=== PATIENT | female | born 1955 | race Caucasian/White ===

== ENCOUNTER → 2023-12-06 11:30 | Outpatient (REF) | payer MEDICARE, OTHER, SELFPAY ==
[2023-12-06 12:55] LABS: Free T4 1.43 ng/dl (0.78-2.19)
[2023-12-06 13:09] LABS: TSH 1.06 uIU/ml (0.47-4.68)
== END ==
LOC: REG 11:30
PROVIDERS: ATTENDING PHYSICIAN Internal Medicine Endocrinology, Diabetes & Metabolism; FAMILY PHYSICIAN Nurse Practitioner Adult Health
DX: E05.90 Thyrotoxicosis, unspecified without thyrotoxic crisis or storm (principal)
CPT/HCPCS: 36415; 84439; 84443

== ENCOUNTER → 2024-02-12 07:14 | Outpatient (REF) | payer MEDICARE, OTHER, SELFPAY ==
[2024-02-12 10:31] LABS: ALT (SGPT) 14 U/L (0-35); AST (SGOT) 23 U/L (14-36); Albumin 4.2 g/dl (3.5-5.0); Alkaline Phosphatase 66 U/L (38-126); Blood Urea Nitrogen 22 mg/dl (7-17); Calcium 9.2 mg/dl (8.4-10.2); Carbon Dioxide 28 mmol/L (22-30); Chloride 105 mmol/L (98-107); Glucose 86 mg/dl (70-99); Potassium 4.6 mmol/L (3.5-5.1); Sodium 138 mmol/L (135-145); Total Bilirubin 0.9 mg/dl (0.2-1.3); Total Protein 6.9 g/dl (6.3-8.2); eGFR 40.73
[2024-02-12 10:43] LABS: Free T4 1.56 ng/dl (0.78-2.19)
[2024-02-12 10:57] LABS: TSH 0.64 uIU/ml (0.47-4.68)
== END ==
LOC: REG 07:14
PROVIDERS: ATTENDING PHYSICIAN Internal Medicine Endocrinology, Diabetes & Metabolism; FAMILY PHYSICIAN Nurse Practitioner Adult Health
DX: E05.90 Thyrotoxicosis, unspecified without thyrotoxic crisis or storm (principal)
CPT/HCPCS: 36415; 80053; 84100; 84439; 84443

== ENCOUNTER → 2024-03-10 15:09 | Outpatient (REF) | payer MEDICARE, OTHER, SELFPAY ==
[2024-03-10 17:02] LABS: Vitamin D, 25-OH*** 45.7 ng/mL (30-80)
== END ==
LOC: REG 15:09
PROVIDERS: ATTENDING PHYSICIAN Surgery; FAMILY PHYSICIAN Nurse Practitioner Adult Health
DX: E55.9 Vitamin D deficiency, unspecified (principal)
CPT/HCPCS: 36415; 82306

== ENCOUNTER → 2024-05-02 06:57 | Outpatient (REF) | payer MEDICARE, OTHER, SELFPAY ==
[2024-05-02 10:17] LABS: ALT (SGPT) 15 U/L (0-35); AST (SGOT) 23 U/L (14-36); Albumin 4.1 g/dl (3.5-5.0); Alkaline Phosphatase 65 U/L (38-126); Blood Urea Nitrogen 32 mg/dl (7-17); Calcium 9.2 mg/dl (8.4-10.2); Carbon Dioxide 27 mmol/L (22-30); Chloride 106 mmol/L (98-107); Glucose 87 mg/dl (70-99); Potassium 4.4 mmol/L (3.5-5.1); Sodium 141 mmol/L (135-145); Total Protein 6.5 g/dl (6.3-8.2); eGFR 44.24
[2024-05-02 10:45] LABS: TSH Reflex To Free T4 < 0.02 uIU/ml (0.47-4.68)
[2024-05-02 13:30] LABS: Free T4 2.09 ng/dl (0.78-2.19)
== END ==
LOC: RAD 06:57
PROVIDERS: ATTENDING PHYSICIAN Nurse Practitioner Adult Health; FAMILY PHYSICIAN Internal Medicine Endocrinology, Diabetes & Metabolism
DX: Z15.01 Genetic susceptibility to malignant neoplasm of breast (principal); Z15.09 Genetic susceptibility to other malignant neoplasm; E05.90 Thyrotoxicosis, unspecified without thyrotoxic crisis or storm
CPT/HCPCS: 36415; 76700; 80053; 84100; 84439; 84443

== ENCOUNTER → 2024-05-23 07:21 | Outpatient (REF) | payer MEDICARE, OTHER, SELFPAY | LOC: MRI 3T 07:21 | PROVIDERS: ATTENDING PHYSICIAN Surgery; FAMILY PHYSICIAN Nurse Practitioner Adult Health | DX: R92.2 Inconclusive mammogram (principal); Z15.01 Genetic susceptibility to malignant neoplasm of breast | CPT/HCPCS: 77049; A9585 ==

== ENCOUNTER 2024-05-30 06:08 | Outpatient (RCR) | payer MEDICARE, OTHER, SELFPAY | END 2024-05-30 23:59 | disposition home or self-care (01) | LOC: RPT 06:08 | PROVIDERS: ATTENDING PHYSICIAN Physician Assistant; FAMILY PHYSICIAN Nurse Practitioner Adult Health | DX: M76.891 Other specified enthesopathies of right lower limb, excluding foot (principal); M25.551 Pain in right hip | CPT/HCPCS: 97110; 97112; 97162 ==

== ENCOUNTER → 2024-06-17 07:15 | Outpatient (REF) | payer MEDICARE, OTHER, SELFPAY ==
[2024-06-17 09:42] LABS: ALT (SGPT) 16 U/L (0-35); AST (SGOT) 29 U/L (14-36); Albumin 4.1 g/dl (3.5-5.0); Alkaline Phosphatase 64 U/L (38-126); Blood Urea Nitrogen 14 mg/dl (7-17); Carbon Dioxide 28 mmol/L (22-30); Chloride 104 mmol/L (98-107); Glucose 84 mg/dl (70-99); HDL Cholesterol 55 mg/dl; LDL Cholesterol, Calculated 146 mg/dl; Potassium 4.4 mmol/L (3.5-5.1); Sodium 140 mmol/L (135-145); Total Cholesterol 221 mg/dl (50-199); Total Protein 6.5 g/dl (6.3-8.2); Triglyceride 100 mg/dl (10-149); Very Low Density Lipoprotein 20 mg/dl (0-30)
[2024-06-17 10:20] LABS: CA 125 < 5.5 U/mL (0-35)
[2024-06-17 10:33] LABS: TSH Reflex To Free T4 0.02 uIU/ml (0.47-4.68)
== END ==
LOC: REG 07:15
PROVIDERS: ATTENDING PHYSICIAN Internal Medicine Endocrinology, Diabetes & Metabolism; FAMILY PHYSICIAN Nurse Practitioner Adult Health
DX: E05.00 Thyrotoxicosis with diffuse goiter without thyrotoxic crisis or storm (principal); Z00.00 Encounter for general adult medical examination without abnormal findings; E78.2 Mixed hyperlipidemia; Z15.09 Genetic susceptibility to other malignant neoplasm; R97.1 Elevated cancer antigen 125 [CA 125]
CPT/HCPCS: 36415; 80053; 80061; 84439; 84443; 86304

== ENCOUNTER 2024-06-28 08:49 | Outpatient (RCR) | payer MEDICARE, OTHER, SELFPAY | END 2024-06-28 23:59 | disposition home or self-care (01) | LOC: RPT 08:49 | PROVIDERS: ATTENDING PHYSICIAN Physician Assistant; FAMILY PHYSICIAN Nurse Practitioner Adult Health | DX: M25.551 Pain in right hip (principal); M76.891 Other specified enthesopathies of right lower limb, excluding foot; Z73.6 Limitation of activities due to disability | CPT/HCPCS: 97110; 97112; 97140 ==

== ENCOUNTER → 2024-07-07 09:19 | Outpatient (REF) | payer MEDICARE, OTHER, SELFPAY ==
[2024-07-07 10:18] LABS: Urine Albumin Negative (Neg - Trace); Urine Bilirubin Negative (Negative); Urine Character Clear (Clear); Urine Color Yellow; Urine Glucose Negative (Negative); Urine Ketone Negative (Negative); Urine Leukocyte Trace (Negative); Urine Nitrite Negative (Negative); Urine Occult Blood Negative (Negative); Urine Urobilinogen Negative (Neg - 1+)
[2024-07-07 10:26] LABS: Urine Squamous Cell 16-20 /LPF (Few)
[2024-07-07 10:27] LABS: Urine Bacteria Few (Negative); Urine Red Blood Cell 0-2 /HPF (0-2)
[2024-07-07 10:46] LABS: Blood Urea Nitrogen 22 mg/dl (7-17); Carbon Dioxide 29 mmol/L (22-30); Chloride 100 mmol/L (98-107); Glucose 88 mg/dl (70-99); Potassium 4.2 mmol/L (3.5-5.1); Sodium 138 mmol/L (135-145); eGFR 44.24
== END ==
LOC: REG 09:19
PROVIDERS: ATTENDING PHYSICIAN Specialist; FAMILY PHYSICIAN Nurse Practitioner Adult Health
DX: I10 Essential (primary) hypertension (principal); N20.0 Calculus of kidney; N18.30 Chronic kidney disease, stage 3 unspecified
CPT/HCPCS: 36415; 80048; 81003; 81015

== ENCOUNTER 2024-07-26 07:21 | Outpatient (RCR) | payer MEDICARE, OTHER, SELFPAY | END 2024-07-26 23:59 | disposition home or self-care (01) | LOC: RPT 07:21 | PROVIDERS: ATTENDING PHYSICIAN Physician Assistant; FAMILY PHYSICIAN Nurse Practitioner Adult Health | DX: M25.551 Pain in right hip (principal); M76.891 Other specified enthesopathies of right lower limb, excluding foot; Z73.6 Limitation of activities due to disability; R26.89 Other abnormalities of gait and mobility | CPT/HCPCS: 97110; 97112; 97140 ==

== ENCOUNTER 2024-08-09 08:53 | Outpatient (RCR) | payer MEDICARE, OTHER, SELFPAY | END 2024-08-09 23:59 | disposition home or self-care (01) | LOC: RPT 08:53 | PROVIDERS: ATTENDING PHYSICIAN Physician Assistant; FAMILY PHYSICIAN Nurse Practitioner Adult Health | DX: M25.551 Pain in right hip (principal); M76.891 Other specified enthesopathies of right lower limb, excluding foot; Z73.6 Limitation of activities due to disability | CPT/HCPCS: 97110; 97112 ==

== ENCOUNTER → 2024-08-17 15:01 | Outpatient (REF) | payer MEDICARE, OTHER, SELFPAY ==
[2024-08-17 16:44] LABS: Free T4 1.57 ng/dl (0.78-2.19)
[2024-08-17 16:58] LABS: TSH 0.18 uIU/ml (0.47-4.68)
== END ==
LOC: REG 15:01
PROVIDERS: ATTENDING PHYSICIAN Internal Medicine Endocrinology, Diabetes & Metabolism; FAMILY PHYSICIAN Nurse Practitioner Adult Health
DX: E05.00 Thyrotoxicosis with diffuse goiter without thyrotoxic crisis or storm (principal)
CPT/HCPCS: 36415; 84439; 84443

== ENCOUNTER → 2024-10-16 13:34 | Outpatient (REF) | payer MEDICARE, OTHER, SELFPAY ==
[2024-10-16 14:36] LABS: Free T4 1.73 ng/dl (0.78-2.19)
[2024-10-16 14:50] LABS: TSH 0.22 uIU/ml (0.47-4.68)
== END ==
LOC: REG 13:34
PROVIDERS: ATTENDING PHYSICIAN Internal Medicine Endocrinology, Diabetes & Metabolism; FAMILY PHYSICIAN Nurse Practitioner Adult Health
DX: E03.2 Hypothyroidism due to medicaments and other exogenous substances (principal)
CPT/HCPCS: 36415; 84439; 84443

== ENCOUNTER → 2024-11-28 13:42 | Outpatient (REF) | payer MEDICARE, OTHER, SELFPAY | LOC: WDC 13:42 | PROVIDERS: ATTENDING PHYSICIAN Nurse Practitioner Adult Health; FAMILY PHYSICIAN Nurse Practitioner Adult Health | DX: Z12.31 Encounter for screening mammogram for malignant neoplasm of breast (principal) | CPT/HCPCS: 77063; 77067 ==

== ENCOUNTER → 2024-12-07 10:43 | Outpatient (REF) | payer MEDICARE, OTHER, SELFPAY ==
[2024-12-07 11:48] LABS: ALT (SGPT) 14 U/L (0-35); AST (SGOT) 25 U/L (14-36); Albumin 4.6 g/dl (3.5-5.0); Alkaline Phosphatase 66 U/L (38-126); Blood Urea Nitrogen 21 mg/dl (7-17); Calcium 9.4 mg/dl (8.4-10.2); Carbon Dioxide 29 mmol/L (22-30); Chloride 100 mmol/L (98-107); Glucose 96 mg/dl (70-99); HDL Cholesterol 62 mg/dl; LDL Cholesterol, Calculated 143 mg/dl; Potassium 4.8 mmol/L (3.5-5.1); Sodium 138 mmol/L (135-145); Total Bilirubin 1.3 mg/dl (0.2-1.3); Total Cholesterol 218 mg/dl (50-199); Total Protein 6.8 g/dl (6.3-8.2); Triglyceride 69 mg/dl (10-149); Very Low Density Lipoprotein 13 mg/dl (0-30); eGFR 44.24
[2024-12-07 12:05] LABS: Free T4 1.76 ng/dl (0.78-2.19)
== END ==
LOC: REG 10:43
PROVIDERS: ATTENDING PHYSICIAN Internal Medicine Endocrinology, Diabetes & Metabolism; FAMILY PHYSICIAN Nurse Practitioner Adult Health
DX: Z00.00 Encounter for general adult medical examination without abnormal findings (principal); E78.2 Mixed hyperlipidemia; E03.9 Hypothyroidism, unspecified; N18.9 Chronic kidney disease, unspecified
CPT/HCPCS: 36415; 80053; 80061; 84439; 84443

== ENCOUNTER → 2024-12-13 15:17 | Outpatient (REF) | payer MEDICARE, OTHER, SELFPAY | LOC: RAD 15:17 | PROVIDERS: ATTENDING PHYSICIAN Nurse Practitioner Adult Health | DX: M79.604 Pain in right leg (principal); M54.50 Low back pain, unspecified | CPT/HCPCS: 72110 ==

== ENCOUNTER 2024-12-27 06:48 | Outpatient (RCR) | payer MEDICARE, OTHER, SELFPAY | END 2024-12-27 23:59 | disposition home or self-care (01) | LOC: RPT 06:48 | PROVIDERS: ATTENDING PHYSICIAN Nurse Practitioner Adult Health | DX: M79.604 Pain in right leg (principal); M54.51 Vertebrogenic low back pain | CPT/HCPCS: 97110; 97162 ==

== ENCOUNTER 2025-01-10 08:44 | Outpatient (RCR) | payer MEDICARE, OTHER, SELFPAY | END 2025-01-10 23:59 | disposition home or self-care (01) | LOC: RPT 08:44 | PROVIDERS: ATTENDING PHYSICIAN Nurse Practitioner Adult Health | DX: M79.604 Pain in right leg (principal); M54.51 Vertebrogenic low back pain; Z73.6 Limitation of activities due to disability; M25.551 Pain in right hip; R20.0 Anesthesia of skin; M51.369 Other intervertebral disc degeneration, lumbar region without mention of lumbar back pain or lower extremity pain; R26.89 Other abnormalities of gait and mobility | CPT/HCPCS: 97110; 97140 ==

== ENCOUNTER 2025-02-21 08:51 | Outpatient (RCR) | payer MEDICARE, OTHER, SELFPAY | END 2025-02-21 23:59 | disposition home or self-care (01) | LOC: RPT 08:51 | PROVIDERS: ATTENDING PHYSICIAN Nurse Practitioner Adult Health | DX: M79.604 Pain in right leg (principal); M54.51 Vertebrogenic low back pain; Z73.6 Limitation of activities due to disability; M25.551 Pain in right hip; R20.0 Anesthesia of skin; M51.362 Other intervertebral disc degeneration, lumbar region with discogenic back pain and lower extremity pain; M51.369 Other intervertebral disc degeneration, lumbar region without mention of lumbar back pain or lower extremity pain; R26.89 Other abnormalities of gait and mobility | CPT/HCPCS: 97110; 97112 ==

== ENCOUNTER 2025-03-21 08:48 | Outpatient (RCR) | payer MEDICARE, OTHER, SELFPAY | END 2025-03-21 23:59 | disposition home or self-care (01) | LOC: RPT 08:48 | PROVIDERS: ATTENDING PHYSICIAN Nurse Practitioner Adult Health | DX: M79.604 Pain in right leg (principal); M54.51 Vertebrogenic low back pain; Z73.6 Limitation of activities due to disability; M25.551 Pain in right hip; R20.0 Anesthesia of skin; M51.362 Other intervertebral disc degeneration, lumbar region with discogenic back pain and lower extremity pain; R26.89 Other abnormalities of gait and mobility; M51.369 Other intervertebral disc degeneration, lumbar region without mention of lumbar back pain or lower extremity pain | CPT/HCPCS: 97010; 97110; 97112 ==

== ENCOUNTER 2025-04-25 09:21 | Outpatient (RCR) | payer MEDICARE, OTHER, SELFPAY | END 2025-04-25 23:59 | disposition home or self-care (01) | LOC: RPT 09:21 | PROVIDERS: ATTENDING PHYSICIAN Nurse Practitioner Adult Health | DX: M79.604 Pain in right leg (principal); M54.51 Vertebrogenic low back pain; Z73.6 Limitation of activities due to disability; M25.551 Pain in right hip; R20.0 Anesthesia of skin; M51.362 Other intervertebral disc degeneration, lumbar region with discogenic back pain and lower extremity pain; R26.89 Other abnormalities of gait and mobility; M51.369 Other intervertebral disc degeneration, lumbar region without mention of lumbar back pain or lower extremity pain | CPT/HCPCS: 97010; 97110; 97112 ==

== ENCOUNTER → 2025-04-25 09:58 | Outpatient (REF) | payer MEDICARE, OTHER, SELFPAY ==
[2025-04-25 11:44] LABS: Free T4 1.47 ng/dl (0.78-2.19)
[2025-04-25 11:58] LABS: TSH 1.63 uIU/ml (0.47-4.68)
== END ==
LOC: RAD 09:58
PROVIDERS: ATTENDING PHYSICIAN Internal Medicine Endocrinology, Diabetes & Metabolism; FAMILY PHYSICIAN Nurse Practitioner Adult Health; REFERRING PHYSICIAN Nurse Practitioner Adult Health
DX: J45.909 Unspecified asthma, uncomplicated (principal); E03.2 Hypothyroidism due to medicaments and other exogenous substances
CPT/HCPCS: 36415; 71046; 84439; 84443

== ENCOUNTER → 2025-05-08 07:49 | Outpatient (REF) | payer MEDICARE, OTHER, SELFPAY | LOC: RAD 07:49 | PROVIDERS: ATTENDING PHYSICIAN Nurse Practitioner Adult Health; FAMILY PHYSICIAN Surgery | DX: Z15.01 Genetic susceptibility to malignant neoplasm of breast (principal); Z15.09 Genetic susceptibility to other malignant neoplasm; M85.80 Other specified disorders of bone density and structure, unspecified site; M85.89 Other specified disorders of bone density and structure, multiple sites; M85.859 Other specified disorders of bone density and structure, unspecified thigh | CPT/HCPCS: 76700; 77080 ==

== ENCOUNTER → 2025-05-30 10:30 | Outpatient (REF) | payer MEDICARE, OTHER, SELFPAY | LOC: HWRAD 10:30 | PROVIDERS: ATTENDING PHYSICIAN Nurse Practitioner Adult Health; REFERRING PHYSICIAN Surgery | DX: Z15.09 Genetic susceptibility to other malignant neoplasm (principal) | CPT/HCPCS: 76700 ==

== ENCOUNTER → 2025-06-15 07:35 | Outpatient (REF) | payer MEDICARE, OTHER, SELFPAY ==
[2025-06-15 09:46] LABS: ALT (SGPT) 13 U/L (0-35); AST (SGOT) 20 U/L (14-36); Albumin 4.0 g/dl (3.5-5.0); Alkaline Phosphatase 54 U/L (38-126); Blood Urea Nitrogen 23 mg/dl (7-17); Calcium 9.2 mg/dl (8.4-10.2); Carbon Dioxide 30 mmol/L (22-30); Chloride 106 mmol/L (98-107); Glucose 87 mg/dl (70-99); HDL Cholesterol 54 mg/dl; LDL Cholesterol, Calculated 149 mg/dl; Potassium 5.2 mmol/L (3.5-5.1); Sodium 138 mmol/L (135-145); Total Protein 6.4 g/dl (6.3-8.2); Very Low Density Lipoprotein 13 mg/dl (0-30); eGFR 43.96
[2025-06-15 10:22] LABS: CA 125 < 5.5 U/mL (0-35)
== END ==
LOC: REG 07:35
PROVIDERS: ATTENDING PHYSICIAN Nurse Practitioner Adult Health
DX: Z15.09 Genetic susceptibility to other malignant neoplasm (principal); Z15.01 Genetic susceptibility to malignant neoplasm of breast; E78.2 Mixed hyperlipidemia; N18.31 Chronic kidney disease, stage 3a; R31.0 Gross hematuria
CPT/HCPCS: 36415; 80053; 80061; 86304

== ENCOUNTER → 2025-06-26 15:05 | Outpatient (REF) | payer MEDICARE, OTHER, SELFPAY | LOC: RAD 15:05 | PROVIDERS: ATTENDING PHYSICIAN Nurse Practitioner Adult Health | DX: I99.9 Unspecified disorder of circulatory system (principal); R60.1 Generalized edema | CPT/HCPCS: 93926 ==

== ENCOUNTER → 2025-06-27 07:23 | Outpatient (REF) | payer MEDICARE, OTHER, SELFPAY | LOC: MRI 3T 07:23 | PROVIDERS: ATTENDING PHYSICIAN Surgery; FAMILY PHYSICIAN Nurse Practitioner Adult Health | DX: R92.2 Inconclusive mammogram (principal); Z15.09 Genetic susceptibility to other malignant neoplasm; Z80.3 Family history of malignant neoplasm of breast; Z15.01 Genetic susceptibility to malignant neoplasm of breast | CPT/HCPCS: 77049; A9585 ==

== ENCOUNTER → 2025-07-07 07:34 | Outpatient (REF) | payer MEDICARE, OTHER, SELFPAY ==
[2025-07-07 09:13] LABS: Urine Character Clear (Clear)
[2025-07-07 09:25] LABS: Urine Red Blood Cell 0-2 /HPF (0-2); Urine Squamous Cell 16-20 /LPF (Few)
[2025-07-07 09:48] LABS: Blood Urea Nitrogen 21 mg/dl (7-17); Calcium 9.0 mg/dl (8.4-10.2); Carbon Dioxide 30 mmol/L (22-30); Chloride 105 mmol/L (98-107); Glucose 84 mg/dl (70-99); Potassium 4.3 mmol/L (3.5-5.1); Sodium 138 mmol/L (135-145); eGFR 37.03
== END ==
LOC: REG 07:34
PROVIDERS: ATTENDING PHYSICIAN Specialist; FAMILY PHYSICIAN Nurse Practitioner Adult Health
DX: N20.0 Calculus of kidney (principal); I10 Essential (primary) hypertension; E78.2 Mixed hyperlipidemia
CPT/HCPCS: 36415; 80048; 81003; 81015

== ENCOUNTER → 2025-08-15 13:53 | Outpatient (REF) | payer MEDICARE, OTHER, SELFPAY ==
[2025-08-15 16:28] LABS: TSH 0.62 uIU/ml (0.47-4.68)
== END ==
LOC: REG 13:53
PROVIDERS: ATTENDING PHYSICIAN Internal Medicine Endocrinology, Diabetes & Metabolism; FAMILY PHYSICIAN Nurse Practitioner Adult Health
DX: E03.2 Hypothyroidism due to medicaments and other exogenous substances (principal)
CPT/HCPCS: 36415; 84439; 84443